=== PATIENT | female | born 1970 | race Hispanic/Latino ===

== ENCOUNTER 2017-01-08 08:24 | Emergency (ER) | payer MEDICAID ==
[2017-01-08 08:52] VITALS: RESP 20
[2017-01-08] MEDS ORDERED: Piperacillin/Tazobact 4.5 GM in Sodium Chloride 0.9% 100 ML IVPB ONE (09:30)
[2017-01-08 09:44] LABS: BASO % 0.4 % (0.0-2.0); EOS % 0.4 % (0.0-4.0); HEMATOCRIT 39.1 % (34.0-47.0); LYMPH # 1.1 K/uL (1.0-4.3); LYMPH % 9.7 % (20.0-40.0); MEAN CELL VOLUME 95.1 fl (81.0-99.0); MEAN CORPUSCULAR HEMOGLOBIN 31.1 pg (27.0-31.0); MEAN CORPUSCULAR HGB CONC 32.8 g/dL (33.0-37.0); MEAN PLATELET VOLUME 6.8 fl (7.2-11.7); MONO # 0.8 K/uL (0.0-0.8); MONO % 6.9 % (0.0-10.0); NEUT # 9.2 K/uL (1.8-7.0); NEUT % 82.6 % (50.0-75.0); NRBC % 0.1 % (0.0-0.0); PLATELET COUNT 315 K/uL (130-400); RED CELL DISTRIBUTION WIDTH 14.3 % (11.5-14.5); WHITE BLOOD COUNT 11.1 K/uL (4.8-10.8)
[2017-01-08 09:47] LABS: ALB/GLOB RATIO 1.3 (1.0-2.1); ALKALINE PHOSPHATASE 54 U/L (38-126); ALT/SGPT 24 U/L (9-52); AST/SGOT 20 U/L (14-36); BILIRUBIN,TOTAL 0.2 mg/dl (0.2-1.3); BLOOD UREA NITROGEN 13 mg/dl (7-17); CALCIUM 9.1 mg/dL (8.4-10.2); CARBON DIOXIDE 26 mmol/L (22-30); CHLORIDE 108 mmol/L (98-107); GFR AFRICAN-AMERICAN > 60; GLUCOSE,RANDOM 105 mg/dL (65-105); POTASSIUM 4.5 MMOL/L (3.6-5.0); SODIUM 146 mmol/l (132-148); TOTAL PROTEIN 6.7 G/DL (6.3-8.2)
--- NOTE | 2017-01-08 10:33 | ED PDOC ---
HPI: Dental Pain/Injury Time Seen by Provider: 01/08/17 09:06 Chief Complaint (Nursing): Abnormal Skin Integrity Chief Complaint (Provider): Abnormal Skin Integrity History Per: Patient History/Exam Limitations: no limitations Onset/Duration Of Symptoms: Days Current Symptoms Are (Timing): Still Present Severity: Moderate Quality: "Pain" Additional Complaint(s): Patient is a 46 year old female who presents to ED for right facial swelling and pain for 2 days. Patient denies fever, neck pain, difficulty swelling or sore throat. Patient reports similar pain several years ago and diagnosed with a sinus infection at that time. Past Medical History Reviewed: Historical Data, Nursing Documentation, Vital Signs Vital Signs: Last Vital Signs Temp 97.7 F 01/08/17 08:44 Pulse 72 01/08/17 08:44 Resp 20 01/08/17 08:44 BP 138/78 01/08/17 08:44 Pulse Ox 95 01/08/17 08:44 - Medical History PMH: Gastrointestinal Ulcer - Surgical History Surgical History: No Surg Hx - Family History Family History: States: No Known Family Hx - Social History Current smoker - smoking cessation education provided: Yes Alcohol: None Drugs: Cannabis - Home Medications Home Medications: Ambulatory Orders Medication Instructions Recorded Azithromycin [Zithromax Z-Aidan] 250 mg PO DAILY #1 tab 10/02/14 Promethazine/Phenyleph/Codeine 2 tsp PO Q6 PRN #0 syr 10/02/14 [Promethazine Vc W/ Codeine 120 ml] - Allergies Allergies/Adverse Reactions: Allergies Allergy/AdvReac Type Severity Reaction Status Date / Time No Known Allergies Allergy Verified 01/08/17 08:42 Review of Systems ROS Statement: Except As Marked, All Systems Reviewed And Found Negative Constitutional: Negative for: Fever, Chills ENT: Positive for: Mouth Pain, Mouth Swelling. Negative for: Throat Pain, Throat Swelling Respiratory: Negative for: Shortness of Breath Physical Exam - Reviewed Nursing Documentation Reviewed: Yes Vital Signs Reviewed: Yes - Physical Exam Appears: Positive for: Non-toxic, No Acute Distress Skin: Positive for: Normal Color, Warm Eye Exam: Positive for: Normal appearance, EOMI, PERRL ENT: Positive for: Other (Poor dentition through out with erythema, edema and tenderness to gums. No halitosis. No submandibular tenderness. No under the tongue tenderness or edema). Negative for: Sinus Pain/Drainage Neck: Positive for: Normal, Painless ROM, Supple Extremity: Positive for: Normal ROM Neurologic/Psych: Positive for: Alert, Oriented - Laboratory Results Result Diagrams: 01/08/17 09:31 01/08/17 09:31 - ECG O2 Sat by Pulse Oximetry: 95 (RA) Pulse Ox Interpretation: Normal Medical Decision Making Medical Decision Making: Time: 0900 Initial impression: Dental abscess with facial cellulitis Initial plan: -- CT-maxillofacial -- CMP -- CBC -- Morphine and Zosyn Time: 1040 Patient on re-evaluation states pain continues, minimal relief Plan: -- Morphine Scribe Attestation: Documented by Liane Armstrong acting as a scribe for Rolando Mendoza DO MD Scribe Attestation: All medical record entries made by the Scribe were at my direction and personally dictated by me. I have reviewed the chart and agree that the record accurately reflects my personal performance of the history, physical exam, medical decision making, and the department course for this patient. I have also personally directed, reviewed, and agree with the discharge instructions and disposition.
[2017-01-08 11:20] LABS: EOSINOPHIL 2 % (0-7); NEUTROPHIL 84 % (42-75); TOTAL CELLS COUNTED 100
[2017-01-08] MEDS ORDERED: Iohexol 300 100 ML IJ ONE (11:24)
[2017-01-08] MEDS ORDERED: Sodium Chloride 0.9% 50 ML IV ONE (11:24)
--- NOTE | 2017-01-08 12:11 | CT ---
CT scan of the maxillofacial skeleton dated 01/08/2017. History: Right-sided facial edema. Contiguous helical/ transaxial sections of the maxillofacial skeleton performed in standard fashion following intravenous injection of approximately 95 cc of Omnipaque 300 contrast material of. Additional 2 dimensional sagittal and coronal reformats provided. . Comparison made with prior CT scan of the brain dated 03/28/2012. Radiation dose: Total exam DLP = 731.87 mGy-cm. Findings: The current study reveals a radicular cyst surrounding the roots of what appears to be the right 1st maxillary bicuspid of with a defect along the buccal surface of the maxillary alveolus. There is a small septated appearing abscess within the soft tissues along the buccal surface abutting the maxillary alveolar defect. This measures approximately 12.5 x 6.6 with surrounding induration/ inflammatory changes. There also infiltration changes within the subcutaneous soft tissues -subcutaneous fat in the overlying right cheek of that extends inferiorly to just below the level of the mandible and superiorly into the right premaxillary soft tissues extending over the right zygoma. In addition, there also appear to be dental caries involving the for smaller left maxilla of. The small early radicular cyst involving the 2nd right maxillary molar on also suspected. The paranasal sinuses well-developed and currently well-aerated. Minimal mucosal thickening right maxillary sinus however no fluid levels seen. . The remaining sinuses are clear without evidence of fluid or any significant mucoperiosteal inflammatory changes. Orbits and contents unremarkable. Impression: There is a small right maxillary alveolar abscess secondary to and infected right 1st maxillary bicuspid which is associated with a radicular cyst surrounding the roots of this tooth. There is also a small defect of the overlying buccal surface of the maxillary alveolus within the small septated abscess abutting this defect on the buccal surface. . Right-sided facial soft tissue swelling consistent with cellulitis as well. Findings discussed with Dr. Mendoza at approximately 12 p.m. with written down and read back verification.
[2017-01-08 13:22] VITALS: BP 128/78; PULSE 78; TEMP 97.6; O2SAT 98
== END 2017-01-08 13:21 | disposition home or self-care (01) ==
LOC: H.ER 08:24
DX: K04.7 Periapical abscess without sinus (principal)

== ENCOUNTER 2017-04-18 17:33 | Emergency (ER) | payer BC, MEDICAID, OTHER ==
[2017-04-18 17:41] VITALS: BP 137/68; PULSE 65; RESP 20; TEMP 98; O2SAT 100
[2017-04-18] MEDS ORDERED: Naproxen 500 MG TAB PO ONE (18:14)
[2017-04-18] MEDS ORDERED: Naproxen 500 MG TAB PO STA (18:20)
--- NOTE | 2017-04-18 18:26 | ED PDOC ---
Upper Extremity Pain/Injury Time Seen by Provider: 04/18/17 17:40 Chief Complaint (Nursing): Finger,Hand,&Wrist Chief Complaint (Provider): Finger, Hand,&Wrist History Per: Patient History/Exam Limitations: no limitations Onset/Duration Of Symptoms: Hrs (a few hours prior to arrival\\) Current Symptoms Are (Timing): Still Present Severity: Moderate Additional Complaint(s): 46 year old female presents to the ED with complaints of a left hand injury that occurred a few hours prior to arrival. She reports that earlier today, she slammed a door on her left hand and now her left 4th digit is swollen and hurts. She also reports that recently she has been feeling "pins and needles" sensation in both of her forearms that worsens at night. 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 She denies having any other complaints at this time. PMD: patient does not have a PMD, but has insurance and is trying to find one. Past Medical History Reviewed: Historical Data, Nursing Documentation, Vital Signs Vital Signs: Last Vital Signs Temp 98 F 04/18/17 17:38 Pulse 65 04/18/17 17:38 Resp 20 04/18/17 17:38 BP 137/68 04/18/17 17:38 Pulse Ox 100 04/18/17 17:38 - Medical History PMH: Gastrointestinal Ulcer - Family History Family History: States: No Known Family Hx - Social History Alcohol: None Drugs: Denies - Home Medications Home Medications: Ambulatory Orders Medication Instructions Recorded Azithromycin [Zithromax Z-Aidan] 250 mg PO DAILY #1 tab 10/02/14 Promethazine/Phenyleph/Codeine 2 tsp PO Q6 PRN #0 syr 10/02/14 [Promethazine Vc W/ Codeine 120 ml] Clindamycin [Cleocin] 300 mg PO TID #21 cap 01/08/17 Naproxen [Naprosyn] 500 mg PO BID PRN #14 tablet 01/08/17 oxyCODONE/Acetaminophen [Percocet 1 ea PO Q6 #8 tab 01/08/17 5/325 mg Tab] Naproxen [Naprosyn Tab] 375 mg PO Q8 PRN #21 tab 04/18/17 - Allergies Allergies/Adverse Reactions: Allergies Allergy/AdvReac Type Severity Reaction Status Date / Time No Known Allergies Allergy Verified 01/08/17 08:42 Review of Systems ROS Statement: Except As Marked, All Systems Reviewed And Found Negative Musculoskeletal: Positive for: Arm Pain (pins and needles sensation in both of her forearms. radiates to upper arms at night.), Other (left 4th digit pain) Physical Exam - Reviewed Nursing Documentation Reviewed: Yes Vital Signs Reviewed: Yes - Physical Exam Appears: Positive for: Well, Non-toxic, No Acute Distress Head Exam: Positive for: ATRAUMATIC, NORMOCEPHALIC Skin: Positive for: Normal Color, Warm, Dry Neck: Positive for: Normal Cardiovascular/Chest: Positive for: Regular Rate, Rhythm Respiratory: Positive for: Normal Breath Sounds. Negative for: Respiratory Distress Extremity: Positive for: Normal ROM, Other (ecchymosis to distal left 4th digit) Neurologic/Psych: Positive for: Alert, Oriented (3x) - ECG O2 Sat by Pulse Oximetry: 100 (RA) Pulse Ox Interpretation: Normal - Progress ED Course And Treament: xry hand: ? small tuft fx of distal phalanx of ring finger left hand Placed in bilateral thumb spica splint Placed in finger splint for injured digit. Naproxen 500mg x 1 dose Medical Decision Making Medical Decision Makin:40 Initial impression: 46 year old female with left finger pain due to an injury. Initial plan: * XRay hand left 3rd digit * naproxen 500mg PO * reevaluation Scribe Attestation: Documented by Jonelle Rodriguez, acting as a scribe for Codey Lim PA-C. Provider Scribe Attestation: All medical record entries made by the Scribe were at my direction and personally dictated by me. I have reviewed the chart and agree that the record accurately reflects my personal performance of the history, physical exam, medical decision making, and the department course for this patient. I have also personally directed, reviewed, and agree with the discharge instructions and disposition. Disposition - Clinical Impression Clinical Impression: Carpal tunnel syndrome on both sides, Closed fracture of distal phalanx of finger of left hand - Patient ED Disposition Is Patient to be Admitted: No - Disposition Referrals: Kevin Up MD [Staff Provider] - Disposition: Routine/Home Disposition Time: 19:11 Condition: FAIR Prescriptions: Naproxen [Naprosyn Tab] 375 mg PO Q8 PRN #21 tab PRN Reason: Pain, Moderate (4-7) Instructions: Finger Fracture (ED), Carpal Tunnel Syndrome (ED) Forms: [facility] ED School/Work Excuse
--- NOTE | 2017-04-19 11:00 | RAD ---
PROCEDURE: Left middle finger radiographs. HISTORY: injury distal phalanx ring finger COMPARISON: None. TECHNIQUE: AP radiograph of the left hand, as well as spot oblique and lateral images of left middle finger were obtained. FINDINGS: LEFT MIDDLE FINGER: Left middle finger normal, without fracture of focal lesion. Remainder of the left hand (as seen on the AP view) is grossly unremarkable. JOINTS: Normal. SOFT TISSUES: No radiopaque/visualized foreign body. OTHER FINDINGS: None. IMPRESSION: No acute findings related to/accounting for the clinical presentation.
== END 2017-04-18 19:12 | disposition home or self-care (01) ==
LOC: H.ER 17:33
DX: S62.609A Fracture of unspecified phalanx of unspecified finger, initial encounter for closed fracture (principal); W22.8XXA Striking against or struck by other objects, initial encounter; Y92.89 Other specified places as the place of occurrence of the external cause; G56.03 Carpal tunnel syndrome, bilateral upper limbs